=== PATIENT | male | born 1970 | race Caucasian/White ===

== ENCOUNTER → 2018-05-21 | Outpatient (CLI) | payer OTHER | LOC: M SLEEP 19:38 | DX: G47.33 Obstructive sleep apnea (adult) (pediatric) (principal) | CPT/HCPCS: 95810 ==

== ENCOUNTER → 2023-01-13 | Outpatient (CLI) | payer OTHER | LOC: M SOG 15:01 | PROVIDERS: ATTEND Physician Assistant | DX: M79.642 Pain in left hand (principal) ==